=== PATIENT | male | born 1965 | race Caucasian/White ===

== ENCOUNTER 2020-12-10 08:00 | Outpatient (CLI) | payer OTHER | END 2020-12-10 08:30 | disposition home or self-care (01) | LOC: PPH VACUNA 08:00 | DX: Z23 Encounter for immunization (principal) ==

== ENCOUNTER 2021-01-01 08:00 | Outpatient (CLI) | payer OTHER | END 2021-01-01 08:30 | disposition home or self-care (01) | LOC: PPH VACUNA 08:00 | DX: Z23 Encounter for immunization (principal) ==

== ENCOUNTER 2022-11-04 06:48 | Inpatient (IN) | payer OTHER ==
[~2022-11-04] VITALS: Ht 177.8 cm; Wt 83.9 kg
== END 2022-11-11 14:40 | disposition home or self-care (01) | DRG 803 ==
LOC: ER 06:48 → SEC-K 16:53 → SURH 16:55
PROVIDERS: ADMIT Internal Medicine; ATTEND Internal Medicine
PROC: BW20YZZ Computerized Tomography (CT Scan) of Abdomen using Other Contrast (ICD-10-PCS; 2022-11-04)
PROC: 30243N1 Transfusion of Nonautologous Red Blood Cells into Central Vein, Percutaneous Approach (ICD-10-PCS; 2022-11-06)
PROC: 0JBB0ZZ Excision of Perineum Subcutaneous Tissue and Fascia, Open Approach (ICD-10-PCS; principal; 2022-11-09)
PROC: 079T3ZX Drainage of Bone Marrow, Percutaneous Approach, Diagnostic (ICD-10-PCS; 2022-11-10)
DX: D61.818 Other pancytopenia (principal); I96 Gangrene, not elsewhere classified; L98.498 Non-pressure chronic ulcer of skin of other sites with other specified severity; K61.1 Rectal abscess; K64.5 Perianal venous thrombosis; D64.89 Other specified anemias; L53.8 Other specified erythematous conditions; R23.8 Other skin changes; M54.89 Other dorsalgia; D69.6 Thrombocytopenia, unspecified; R16.1 Splenomegaly, not elsewhere classified; D72.818 Other decreased white blood cell count; B96.4 Proteus (mirabilis) (morganii) as the cause of diseases classified elsewhere; B96.29 Other Escherichia coli [E. coli] as the cause of diseases classified elsewhere; B96.1 Klebsiella pneumoniae [K. pneumoniae] as the cause of diseases classified elsewhere; Z66 Do not resuscitate

== ENCOUNTER 2023-01-10 16:29 | Emergency (ER) | payer OTHER ==
[~2023-01-10] VITALS: Ht 177.8 cm; Wt 74.8 kg
[2023-01-10] MEDS ORDERED: RITUXAN10 MG/1 ML (17:01)
== END 2023-01-10 21:59 | disposition home or self-care (01) ==
LOC: ER 16:29
DX: C91.40 Hairy cell leukemia not having achieved remission (principal); Z20.822 Contact with and (suspected) exposure to COVID-19

== ENCOUNTER 2023-05-03 08:43 | Outpatient (CLI) | payer OTHER ==
[~2023-05-03 08:43] MED LIST: RITUXAN10 MG/1 ML
== END 2023-05-03 09:03 | disposition home or self-care (01) ==
LOC: TOM 08:43
DX: C91.40 Hairy cell leukemia not having achieved remission (principal)

== ENCOUNTER 2023-06-07 08:45 | Outpatient (CLI) | payer OTHER | END 2023-06-07 08:46 | disposition home or self-care (01) | LOC: NUCLEAR 08:45 | DX: C90.00 Multiple myeloma not having achieved remission (principal) ==